=== PATIENT | female | born 1995 | race Caucasian/White ===

== ENCOUNTER → 2023-01-20 | Outpatient (CLI) | payer OTHER ==
[~2023-01-20] MED LIST: ADVIL200 MG PO; BACTRIM DS 8001 TAB PO; CEPHALEXIN500 M1 PO; LORTAB ELIX0.5 MG/ML PO; PREDNISONE20 M1 PO
== END ==
LOC: VAS 08:52 → RAD 09:00 → VAS 09:00
DX: M79.89 Other specified soft tissue disorders (principal); M79.604 Pain in right leg; R79.1 Abnormal coagulation profile